=== PATIENT | female | born 1955 | race Caucasian/White ===

== ENCOUNTER → 2016-10-01 | Outpatient (CLI) | payer OTHER ==
[~2016-10-01] MED LIST: FISH OIL 1,0001 CA2 PO; MULTI-VITAMIN1 TAB PO; NEXIUM PO; VITAMIN D31000 UNIT PO
--- NOTE | ~2016-10-01 | US24 ---
[facility] A Service of [facility] RADIOLOGY TEXT RESULTS PATIENT: JOSE RAFAEL VELAZQUEZ LOCATION: [facility] : 51 UNIT #: [id number] AGE: [address]: Anne Love MD SEX: F ORDER DR: [id number] [facility] [address] [place], [place] [address] [id number] O MR#: [id number] Acc #: [id number] NAME: JOSE RAFAEL VELAZQUEZ. : 1955 SEX: F STUDY DATE/TIME: 10/01/2016 13:17 UNIT: [facility] ROOM: STUDY DESCRIPTION: US Breast Unilateral Attending Physician: Juan F Love M.D. Ordering Physician: Juan F Love M.D. Primary Care Physician: Jovan Ceja M.D. MEDICAL IMAGING REPORT This report is preliminary unless electronic signature is present EXAM Left breast ultrasound, 10/01/2016. HISTORY Pain and axillary tail of the left breast for 9 months. No palpable abnormality. Preceding left digital diagnostic mammogram demonstrated no abnormal finding and ultrasound was recommended for further evaluation. FINDINGS Ultrasound of the site of patient's pain, axillary tail of the left breast reveals normal fibroglandular tissue, as well as normal muscular and subcutaneous tissues. No cystic or solid mass lesions were identified. IMPRESSION Negative ultrasound at the site of patient's pain, axillary tail left breast. Further management of the patient's left breast pain should be based on clinical assessment. Specifically, any decision to biopsy should be based entirely upon clinical presentation. Annual mammogram is recommended or sooner if clinically indicated. Patients over the age of 40 are entered into a reminder system with target due date for the next mammogram. A result letter will also be sent to the patient. BIRADS: 1 Negative Dictated by... Allen Lopez M.D. THIS IS AN ELECTRONICALLY VERIFIED REPORT Allen Lopez M.D. at 10/02/2016 8:29 AM [facility] A Service of [facility] RADIOLOGY TEXT RESULTS PATIENT: JOSE RAFAEL VELAZQUEZ LOCATION: [facility] : 51 UNIT #: [id number] AGE: [address]: Anne Love MD SEX: F ORDER DR: Foster TD: 10/01/2016 14:27 JOB #: [id number] MEDICAL IMAGING REPORT Page 1 of 1 COPY
--- NOTE | ~2016-10-01 | MY7 ---
[facility] A Service of [facility] RADIOLOGY TEXT RESULTS PATIENT: JOSE RAFAEL VELAZQUEZ LOCATION: [facility] : 51 UNIT #: [id number] AGE: [address]: Anne Love MD SEX: F ORDER DR: [id number] [facility] [address] [place], [place] [address] [id number] O MR#: [id number] Acc #: [id number] NAME: JOSE RAFAEL VELAZQUEZ. : 1955 SEX: F STUDY DATE/TIME: 10/01/2016 12:41 UNIT: [facility] ROOM: STUDY DESCRIPTION: MY Mammogram Dx Dig Lt Attending Physician: Anne Love Ordering Physician: Anne Love Primary Care Physician: Jovan Ceja M.D. MEDICAL IMAGING REPORT This report is preliminary unless electronic signature is present EXAM Unilateral left digital diagnostic mammogram with CAD device 10/01/2016 HISTORY Pain axillary tail of left breast for 9 months with no palpable abnormality. FINDINGS Unilateral left digital diagnostic mammogram was performed in craniocaudal, mediolateral oblique and mediolateral projections demonstrating predominant fatty replacement. There is no suspicious mass or cluster of microcalcifications. The films have been reviewed by an FDA-approved CAD device. Ultrasound of the axillary tail of the left breast was performed at the site of patient's pain demonstrating normal muscular subcutaneous and fibroglandular tissue. No cystic or solid mass lesions were identified. IMPRESSION Negative left digital diagnostic mammogram and negative ultrasound of the site of patient's pain, axillary tail left breast. Further management of the patient's left breast pain should be based on clinical assessment. Specifically any decision to biopsy should be based entirely upon clinical presentation. Annual mammogram is recommended or sooner if clinically indicated. Patients over the age of 40 are entered into a reminder system with target due date for the next mammogram. A result letter will also be sent to the patient. BIRADS: 1 Negative. Dictated by... Allen Lopez M.D. [facility] A Service of [facility] RADIOLOGY TEXT RESULTS PATIENT: JOSE RAFAEL VELAZQUEZ LOCATION: [facility] : 51 UNIT #: [id number] AGE: [address]: Anne Love MD SEX: F ORDER DR: THIS IS AN ELECTRONICALLY VERIFIED REPORT Allen Lopez M.D. at 10/02/2016 8:29 AM JAZMIN/[email or web address] TD: 10/01/2016 14:23 JOB #: [id number] MEDICAL IMAGING REPORT Page 1 of 1 COPY
== END | disposition home or self-care (01) ==
LOC: CMAM 12:10
DX: N64.4 Mastodynia (principal)
CPT/HCPCS: 76641; G0206